=== PATIENT | male | born 1990 | race Two or more races ===

== ENCOUNTER 2021-07-24 22:59 | Emergency (ER) | payer MEDICAID, OTHER ==
[~2021-07-24] VITALS: Ht 175.3 cm; Wt 67.1 kg
[2021-07-24 22:59] VITALS: BP 142/78
[2021-07-25 04:53] LABS: Urine Bacteria NONE SEEN /hpf (None Seen); Urine Blood Negative /uL (Negative); Urine Mucus FEW (None Seen); Urine Specific Gravity 1.033 (1.001-1.035); Urine WBC 3 /hpf (0 - 3)
[2021-07-25] MEDS ORDERED: IBUPROFEN 800 MG TAB PO ONE (05:00)
[2021-07-25] MEDS ORDERED: ACETAMINOPHEN 500 MG TAB PO ONE (05:00)
== END 2021-07-25 05:11 | disposition home or self-care (01) ==
LOC: ER 22:59
DX: N20.0 Calculus of kidney (principal)
CPT/HCPCS: 76870; 81001

== ENCOUNTER → 2022-12-15 | Outpatient (CLI) | payer MEDICAID | END | disposition home or self-care (01) | LOC: Rad HDHVI 08:56 | PROVIDERS: ATTEND Internal Medicine Cardiovascular Disease | DX: I34.0 Nonrheumatic mitral (valve) insufficiency (principal); R07.89 Other chest pain; R00.2 Palpitations | CPT/HCPCS: 93306 ==